=== PATIENT | female | born 1995 ===

== ENCOUNTER 2017-08-31 19:53 | Emergency (ER) | payer BC ==
[2017-08-31 20:29] VITALS: BP 131/70
--- NOTE | 2017-08-31 20:42 | UC ---
Laceration HPI - HPI Summary HPI Summary: While playing softball, patient hit a softball which deflected off the bat and struck her in the mouth. She is complaining of pain swelling and a cut to her right lower lip as well as pain to her right upper central tooth. She denies any malocclusion. She denies any loose teeth. She had no loss of consciousness. She has no neck pain. Patient denies any other injuries and offers no other complaints. Her tetanus shot is up-to-date. - History Of Current Complaint Stated Complaint: MOUTH LACERATION HIT IN MOUTH W/SOFTBALL Time Seen by Provider: 08/31/17 20:27 Hx Obtained From: Patient Hx Last Menstrual Period: 03/28/15 Onset/Duration: Sudden Onset - Allergies/Home Medications Allergies/Adverse Reactions: Allergies Allergy/AdvReac Type Severity Reaction Status Date / Time No Known Allergies Allergy Verified 08/31/17 20:30 Home Medications: Home Medications Oral Contraceptives DAILY 08/31/17 [History] PMH/Surg Hx/FS Hx/Imm Hx Previously Healthy: Yes - Surgical History Surgical History: None - Family History Known Family History: Positive: None - Social History Lives: With Family Alcohol Use: None Substance Use Type: None Smoking Status (MU): Never Smoked Tobacco Have You Smoked in the Last Year: No - Immunization History Most Recent Influenza Vaccination: [id number] Hx Tetanus, Diphtheria Vaccination: Yes Vaccination Up to Date: Yes Review of Systems Constitutional: Negative Skin: Other - swelling to lip and pain to R upper central tooth Eyes: Negative ENT: Negative Respiratory: Negative Cardiovascular: Negative Gastrointestinal: Negative Genitourinary: Negative Motor: Negative Neurovascular: Negative Musculoskeletal: Negative Neurological: Negative Psychological: Negative Is Patient Immunocompromised?: No All Other Systems Reviewed And Are Negative: Yes Physical Exam Triage Information Reviewed: Yes Appearance: Well-Appearing Vital Signs Reviewed: Yes Eyes: Positive: Conjunctiva Clear, Other: - PERRL, EOMI. ENT: Positive: Pharynx normal, TMs normal, Other - R lower lip with moderate swelling, bruising and superficial break in skin. No active bleeding. No malocclusion.. Negative: Nasal congestion, Nasal drainage Dental: Positive: Percussion Tenderness @ - R upper central incisor. No overt loose or chip teeth. Neck: Positive: Supple, Nontender, No Lymphadenopathy, Other: - cspine non tender. Respiratory: Positive: Lungs clear, Normal breath sounds Cardiovascular: Positive: RRR, No Murmur Abdomen Description: Positive: Nontender, No Organomegaly, Soft Bowel Sounds: Positive: Present Musculoskeletal: Positive: Other: - No cranial or facial bone instability or tenderness. Neurological: Positive: Alert Psychological: Positive: Age Appropriate Behavior Skin Exam: Normal Laceration Course/Dx - Course/Dx Course Of Treatment: nothing to suture. cool compress to lip and wound rinsed with swish/spit sterile NaCl. need to f/u dental stressed for evaluation of the tender tooth. - Differential Dx - Laceration/Wound Provider Diagnoses: CONTUSION TO LOWER LIP WITH SUPERFICIAL LACERATION-NO CLOSURE. R UPPER CENTRAL INCISOR PAIN Discharge - Sign-Out/Discharge Documenting (check all that apply): Discharge/Admit/Transfer - Discharge Plan Condition: Stable Disposition: HOME Patient Education Materials: Acute Dental Trauma (ED), Facial Laceration (ED) Forms: *Work Release Referrals: ZEINA Pemberton [Primary Care Provider] - If Needed Sae Becerra DMD [Doctor of Dental Medicine] - 1 Day Additional Instructions: DIAGNOSIS: CONTUSION TO LOWER LIP WITH SUPERFICIAL LACERATION-NO CLOSURE. R UPPER CENTRAL INCISOR PAIN RINSE MOUTH WITH WATER AFTER ALL FOOD/DRINK. AVOID SPICY, SALTY, GRITTY FOODS. EAT A SOFT DIET UNTIL CLEARED BY DENTAL. FOLLOW UP WITH A DENTIST TOMORROW FOR THE DENTAL INJURY. - Billing Disposition and Condition Condition: STABLE Disposition: HOME
[2017-08-31] MEDS ORDERED: Ibuprofen ADULT LIQ* 600 MG/30 ML UDC PO ONE (20:43)
== END 2017-08-31 21:05 | disposition home or self-care (01) ==
LOC: UCCORT 19:53
DX: S01.511A Laceration without foreign body of lip, initial encounter (principal); K08.89 Other specified disorders of teeth and supporting structures; W21.07XA Struck by softball, initial encounter; Y93.64 Activity, baseball; Y92.9 Unspecified place or not applicable
CPT/HCPCS: 99211; A9270-GY; G0463